=== PATIENT | male | born 1995 | race African-American/Black ===

== ENCOUNTER 2020-10-22 10:48 | Emergency (ER) | payer OTHER, SELFPAY ==
--- NOTE | 2020-10-22 10:59 | ED.MALEGU ---
HPI - Male Genitourinary General Chief complaint: Urogenital-Male Stated complaint: STD EXPOSURE Source: patient and RN notes reviewed Limitations: no limitations History of Present Illness HPI Narrative: The patient, previously mostly healthy with a history of chlamydia, presents with STD exposure. Patient states his regular girlfriend's been recently tested for both gonorrhea and chlamydia and was told that she had chlamydia. He is asymptomatic without fever, discharge, rash/pimples, frequency/dysuria, anal receptive intercourse-declines Rocephin/parenteral treatment. Related Data Allergies Allergy/AdvReac Type Severity Reaction Status Date / Time No Known Allergies Allergy Verified 10/22/20 11:03 Review of Systems Review of Systems: The patient has been informed that they may have pre-hypertension or Hypertension based on a BP reading in the department. I recommend that the patient call the primary care provider listed on their discharge instructions or a physician of their choice this week to arrange follow up for further evaluation of possible pre-hypertension or Hypertension General/Constitutional: No weight loss,fever Eyes: N0: Redness,discharge Ears/Nose/Throat: No: Epistaxis,ear discharge Respiratory: Denies: Hemoptysis Gastrointestinal: No Vomiting, Bleeding-rectal Skin: No Lumps, eruption Neurologic: No Focal Weakness,Sz Hematologic: Denies: Petechiae/Purpura Psychiatric: No: Suicida ideationl All Other Systems: Reviewed and Negative PMFSH Comments At time of signature, agree with nursing past medical, surgical, social and family history. There is no relevant family history pertinent to the presenting complaint Exam Narrative: General Appearance: Well appearing, No distress EYE: PERRLA, Conjunctiva clear Ears: External ear normal Nose: Normal nose Mouth/Throat: Normal appearing, Normal lips, Supple Respiratory: Airway patent, No respiratory distress Cardiovascular: RR GI/: Soft, Non-tender, no lymphadenopathy; bilateral descended testicles, circumcised phallus, no IH nor skin eruption Musculoskeletal: Full ROM, Warm, Dry Neurological: A&O x3, CN II-X intact Psychiatric: Normal mood, Normal affect Course Vital Signs Vital signs: Vital Signs Temperature 98.7 F 10/22/20 11:01 Pulse Rate 94 10/22/20 11:01 Respiratory Rate 16 10/22/20 11:01 Blood Pressure 140/79 10/22/20 11:01 Pulse Oximetry 100 10/22/20 11:01 Temperature 98.7 F 10/22/20 11:01 Pulse Rate 94 10/22/20 11:01 Respiratory Rate 16 10/22/20 11:01 Blood Pressure 140/79 10/22/20 11:01 Pulse Oximetry 100 10/22/20 11:01 MDM - Male Genitourinary Lab Data Labs: Lab Results 10/22/20 Range/Units 11:01 C.trachomatis RNA (TMA) Pending N.gonorrhoeae RNA (TMA) Pending T. vaginalis Amp RNA Pending Discharge Plan Discharge Clinical Impression: Exposure to communicable disease, History of chlamydia Patient Disposition: Home, Self-Care Condition: Stable Instructions: Chlamydia (ED) Prescriptions: New azithromycin 250 mg tablet See Rx Instructions .ROUTE .COMPLEX Qty: 4 RF: 0 doxycycline hyclate 100 mg tablet 100 mg PO BID Qty: 14 RF: 0 Follow-up/Referrals: UNKNOWN,DOCTOR [Primary Care Provider] -
[2020-10-22 11:01] VITALS: BP 140/79; PULSE 94; RESP 16; TEMP 37.1; O2SAT 100
== END 2020-10-22 11:19 | disposition home or self-care (01) ==
PROVIDERS: Emergency Provider Emergency Medicine
DX: Z20.2 Contact with and (suspected) exposure to infections with a predominantly sexual mode of transmission (principal); Z86.19 Personal history of other infectious and parasitic diseases
CPT/HCPCS: 87491; 87591; 87661; 99213; G0463

== ENCOUNTER 2021-03-11 11:36 | Emergency (ER) | payer OTHER, SELFPAY ==
[2021-03-11 11:44] VITALS: BP 147/80; PULSE 88; RESP 18; TEMP 37.1; O2SAT 100
--- NOTE | 2021-03-11 11:45 | ED.GENADULT ---
HPI - General Adult General Chief complaint: Skin/Abscess/Foreign Body Stated complaint: Itching under arms, genitals and buttocks. Time Seen by Provider: 03/11/21 11:46 Source: patient Mode of arrival: ambulatory Limitations: no limitations History of Present Illness HPI narrative: 25-year-old male presented for complaints of itching to bilateral axilla, genital and rectal area for about 3 days. Denies rash, denies urethral discharge at this time. He endorses possible STD exposure. No other complaints at this time. Related Data Allergies Allergy/AdvReac Type Severity Reaction Status Date / Time No Known Allergies Allergy Verified 10/22/20 11:03 Review of Systems Review of Systems: CONSTITUTIONAL: Denies body aches, fever, chills, or sweats. EYES: Denies visual changes, redness, or discharge. ENT: Denies rhinorrhea, congestion, sore throat, or otalgia. CARDIOVASCULAR: Denies chest pain, palpitations, or edema. RESPIRATORY: Denies cough or dyspnea. GASTROINTESTINAL: Denies abdominal pain, nausea, vomiting, or diarrhea. GENITOURINARY: Denies dysuria or hematuria or discharge SKIN: Endorses itching Denies rash or wounds. MUSCULOSKELETAL: Denies back pain, joint pain, or myalgia. NEUROLOGIC: Denies headache, numbness, tingling, or weakness. PSYCH: Denies depression or anxiety. PMFSH Comments At time of signature, I have reviewed and agree with nursing past medical, surgical, social and family history unless otherwise noted. Please see nursing chart for further information. There is no relevant family history pertinent to the presenting complaint Exam Narrative: GENERAL: Well-appearing, well-nourished, and in no acute distress. HEAD: Normocephalic, atraumatic. EYES: EOMI. No redness or drainage. Conjunctivae normal. ENT: Mucous membranes pink and moist. NECK: Normal AROM. CHEST: No respiratory distress. Clear to auscultation. HEART: Regular rate and rhythm. No murmur appreciated. Normal peripheral pulses. ABDOMEN: Soft, nontender : no rash or lesions MUSCULOSKELETAL: No bony tenderness. EXTREMITIES: Normal range of motion. No edema. SKIN: Warm, dry, no rash. Capillary refill normal. Normal skin turgor. NEURO: No focal deficits. Alert and oriented x3. Gait steady. PSYCH: Normal affect. No signs of depression or anxiety. Course Course Emergency Course: Patient is aware of diagnosis, understands and agrees to treatment plan. We discussed OTC meds for itching. Given possible exposure without sx, pt will be tested for GC chlam and trich and treated upon results. Anticipatory guidance given. Patient agrees to follow-up as directed and is aware of reasons to seek care at the emergency department. Portions of this record may have been created with voice recognition software Level of Care: Express Care Visit Vital Signs Vital signs: Vital Signs Temperature 98.8 F 03/11/21 11:44 Pulse Rate 88 03/11/21 11:44 Respiratory Rate 18 03/11/21 11:44 Blood Pressure 147/80 H 03/11/21 11:44 Pulse Oximetry 100 03/11/21 11:44 Temperature 98.8 F 03/11/21 11:44 Pulse Rate 88 03/11/21 11:44 Respiratory Rate 18 03/11/21 11:44 Blood Pressure 147/80 H 03/11/21 11:44 Pulse Oximetry 100 03/11/21 11:44 Medical Decision Making Differential Diagnosis Differential Diagnosis: contact dermatitis, fungal infection, urticaria Vital Signs Vital Signs: Vital Signs Temperature 98.8 F 03/11/21 11:44 Pulse Rate 88 03/11/21 11:44 Respiratory Rate 18 03/11/21 11:44 Blood Pressure 147/80 H 03/11/21 11:44 Pulse Oximetry 100 03/11/21 11:44 Temperature 98.8 F 03/11/21 11:44 Pulse Rate 88 03/11/21 11:44 Respiratory Rate 18 03/11/21 11:44 Blood Pressure 147/80 H 03/11/21 11:44 Pulse Oximetry 100 03/11/21 11:44 Discharge Plan Discharge Clinical Impression: Pruritus, Encounter for assessment of STD exposure Patient Disposition: Home, Self-Care Condition: Stab
== END 2021-03-11 12:16 | disposition home or self-care (01) ==
PROVIDERS: Emergency Provider Nurse Practitioner Family
DX: L29.9 Pruritus, unspecified (principal); Z20.2 Contact with and (suspected) exposure to infections with a predominantly sexual mode of transmission
CPT/HCPCS: 81003; 87491; 87591; 87661; 99213; G0463